=== PATIENT | male | born 1945 | race Caucasian/White ===

== ENCOUNTER 2017-08-09 20:03 | Emergency (ER) | payer MEDICARE ==
[~2017-08-09] VITALS: Ht 172.7 cm; Wt 100.0 kg
[~2017-08-09 20:03] MED LIST: LISI-167 PO
[2017-08-09 20:43] LABS: HEMATOCRIT 47.6 % (39.2-51.8); HEMOGLOBIN 16.4 g/dL (13.7-18.0); WHITE BLOOD COUNT 9.1 x10^3/uL (3.4-10)
[2017-08-09 20:51] LABS: BLOOD UREA NITROGEN 22 mg/dL (7-18)
[2017-08-09] MEDS ORDERED: hydrALAzine 20 MG/ML, 1ML ONE (21:17)
[2017-08-09 21:25] VITALS: BP 203/103
[2017-08-09] MEDS ORDERED: hydrALAzine 20 MG/ML, 1ML IV ONE (21:30)
== END 2017-08-09 22:07 | disposition home or self-care (01) ==
LOC: ED 21:59
DX: I10 Essential (primary) hypertension (principal)
CPT/HCPCS: 36415; 80048; 82040; 85025; 93005; 96374; 99285; J0360

== ENCOUNTER 2018-11-14 09:22 | Emergency (ER) | payer MEDICARE ==
[~2018-11-14] VITALS: Ht 177.8 cm; Wt 96.6 kg
--- NOTE | 2018-11-14 11:29 | NUR ---
TASK RN: PT NOT IN ROOM FOR D/C. LOOKED FOR PT IN BATHROOM, D/C DESK AND LOBBY. CALLED HOME PHONE # AND LEFT GENERIC MESSAGE FOR PT TO RTN CALL.
[2018-11-14 11:31] VITALS: BP 185/96
--- NOTE | 2018-11-14 18:24 | NUR ---
CALLED PHONE NUMBER ON FILE AND LEFT MESSAGE REQUESTING CALL-BACK. 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
== END 2018-11-14 11:34 | disposition home or self-care (01) ==
LOC: ED 10:48
DX: S83.421A Sprain of lateral collateral ligament of right knee, initial encounter (principal); I10 Essential (primary) hypertension; X50.1XXA Overexertion from prolonged static or awkward postures, initial encounter; Y93.89 Activity, other specified; Y92.89 Other specified places as the place of occurrence of the external cause; Y99.8 Other external cause status
CPT/HCPCS: 99283